=== PATIENT | female | born 1970 | race Caucasian/White ===

== ENCOUNTER → 2017-05-20 | Outpatient (CLI) | payer BC ==
[~2017-05-20] MED LIST: COLACE100 MG PO; LEVAQUIN500 MG PO; NORCO 5-325 MG1 TAB PO
== END | disposition disaster alternative care site (69) ==
LOC: GBCOE 09:42
DX: Z12.31 Encounter for screening mammogram for malignant neoplasm of breast (principal)
CPT/HCPCS: G0202